=== PATIENT | male | born 1980 | race Caucasian/White ===

== ENCOUNTER 2019-11-09 23:47 | Emergency (ER) | payer BC ==
[~2019-11-09] VITALS: Ht 188 cm; Wt 97.5 kg
[2019-11-09 23:50] VITALS: BP 132/70
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
--- NOTE | 2019-11-10 00:30 | NUR ---
ERMD AT BEDSIDE
--- NOTE | 2019-11-10 00:51 | NUR ---
ERMD AT BEDSIDE
[2019-11-10 01:00] VITALS: BP 132/70
--- NOTE | 2019-11-10 01:00 | NUR ---
Patient discharged with v/s stable. Written and verbal after care instructions given and explained. Patient alert, oriented and verbalized understanding of instructions. Ambulatory with steady gait. All questions addressed prior to discharge. ID band removed. Patient advised to follow up with PMD. Opportunity to ask questions provided and answered.
== END 2019-11-10 01:00 | disposition home or self-care (01) ==
LOC: MED 23:47 → EDBD 23:47 → MED 11-10 01:00
DX: T58.8X2A Toxic effect of carbon monoxide from other source, intentional self-harm, initial encounter (principal)
CPT/HCPCS: 36600; 82803; 99283